=== PATIENT | female | born 1995 | race Caucasian/White ===

== ENCOUNTER 2022-09-05 09:40 | Inpatient (IN) | payer BC, OTHER ==
[~2022-09-05] VITALS: Ht 165.1 cm; Wt 43.1 kg
[2022-09-05] MEDS ORDERED: SPIR50TA5 PO (10:06)
--- NOTE | 2022-09-05 10:08 | NUR ---
to ER 16 UA - sent to lab
--- NOTE | 2022-09-05 10:10 | NUR ---
urine sample obtained sent to lab
--- NOTE | 2022-09-05 10:18 | NUR ---
IV STARTED. R FA 20G
[2022-09-05] MEDS ORDERED: ONDANSETRON HCL/PF 4 MG/2 ML VIAL ONE (10:26)
[2022-09-05] MEDS ORDERED: MORPHINE SULFATE INJ 4 MG/ML DISP.SYRIN ONE (10:27)
[2022-09-05] MEDS ORDERED: IV NS 0.9% 500 ML BAG IV ONE (10:30)
[2022-09-05] MEDS ORDERED: MORPHINE SULFATE INJ 2 MG/ML DISP.SYRIN IV ONE (10:30)
[2022-09-05] MEDS ORDERED: ONDANSETRON HCL/PF 4 MG/2 ML VIAL IVP ONE (10:30)
[2022-09-05 10:48] LABS: BASOPHILS % (AUTO) 0.2 % (0.0-2.0); EOSINOPHILS % (AUTO) 0.3 % (0.0-6.0); HEMATOCRIT 44 % (33-45); HEMOGLOBIN 14.7 g/dL (11.5-14.8); LYMPHOCYTES # (AUTO) 0.9 K/uL (0.8-4.8); LYMPHOCYTES % (AUTO) 11.3 % (20.0-44.0); MEAN CORPUSCULAR HGB CONC 33 g/dl (31.0-36.0); MEAN CORPUSCULAR VOLUME 93 fL (82-100); MONOCYTES # (AUTO) 0.5 K/uL (0.1-1.30); MONOCYTES % (AUTO) 6.1 % (2.0-12.0); NEUTROPHILS # (AUTO) 6.2 K/uL (1.8-8.9); NEUTROPHILS % (AUTO) 82.1 % (43.0-81.0); PLATELET COUNT (AUTO) 310 K/uL (150-450); WHITE BLOOD COUNT (AUTO) 7.6 K/uL (4.3-11.0)
[2022-09-05 11:20] LABS: CALCIUM, SERUM 9.6 mg/dL (8.5-10.1); CREATININE 0.9 mg/dL (0.6-1.3); POTASSIUM 3.8 mmol/L (3.5-5.1)
[2022-09-05 11:23] LABS: BILIRUBIN,URINE NEGATIVE (NEGATIVE); COLOR,URINE YELLOW (YELLOW); LEUKOCYTE ESTERASE ,URINE NEGATIVE (NEGATIVE); NITRITE, URINE NEGATIVE (NEGATIVE); PROTEIN,URINE NEGATIVE (NEGATIVE); UGLUCOSE NEGATIVE (NEGATIVE); UROBILINOGEN,URINE 0.2 EU/dL (0.2)
[2022-09-05 11:26] LABS: ALBUMIN 4.5 g/dL (3.4-5.0); BILIRUBIN,DIRECT 0.2 mg/dL (0.0-0.2); BILIRUBIN,TOTAL 0.5 mg/dL (0.2-1.0); TOTAL PROTEIN, SERUM 7.7 g/dL (6.4-8.2)
--- NOTE | 2022-09-05 11:40 | NUR ---
RETURNED FROM RADIOLOGY
[2022-09-05 11:55] LABS: BACTERIA,URINE None seen /HPF (None Seen); RBC,URINE 0-2 /HPF (0-2); SQUAMOUS EPITHELIAL CELL,UR Rare /HPF (None Seen); WBC,URINE 0-2 /HPF (0-3)
--- NOTE | 2022-09-05 11:56 | NUR ---
DR LEIVA AT BEDSIDE
--- NOTE | 2022-09-05 12:09 | NUR ---
covid swab taken
--- NOTE | 2022-09-05 12:10 | NUR ---
PAGED DR. MONK FOR PEER TO PEER CONSULT
--- NOTE | 2022-09-05 12:10 | NUR ---
PAGED DR. MARINA REGARDING SURGERY FOR PT
--- NOTE | 2022-09-05 12:18 | NUR ---
NG TUBE PLACED AND SECURED ,
--- NOTE | 2022-09-05 12:18 | NUR ---
CALLED XRAY FOR NG TUBE PLACEMENT CONFIRMATION
--- NOTE | 2022-09-05 12:43 | NUR ---
WAQAR CALLED [facility]O FOR A [facility] BED
--- NOTE | 2022-09-05 13:39 | NUR ---
report given to Janina WELLS.
--- NOTE | 2022-09-05 14:05 | NUR ---
CHAMBER WALKER NOTES: RECEIVED PT VIA GURNEY FROM ER, PT IS AWAKE, A/O X4, ABLE TO MAKE NEEDS KNOW. ON RA, BREATHING EVEN AND UNLABORED, NO S/S OF SOB. PT ABLE TO TRANSFER SELF TO BED. IV ACCESS AT R AC #20, PATENT AND INTACT. SKIN IS INTACT. NG TUBE FOR SUCTION NOTED, SETTING AT LOW TO MEDIUM. PT ORIENTED TO STAFF AND UNIT. CALL LIGHT, TABLE WITHIN REACH, SAFETY MEASURES IN PLACE, WILL CONT WITH PLAN OF CARE DURING SHIFT.
[2022-09-05] MEDS ORDERED: HYDROCODONE/APAP 5/325MG TABLET PO PRN (15:00)
[2022-09-05] MEDS ORDERED: IV D5/0.45 NACL 1,000 ML IV PRN (15:00)
[2022-09-05] MEDS ORDERED: Z GUARD REMEDY 4 OZ OINT TP PRN (15:00)
[2022-09-05] MEDS ORDERED: ONDANSETRON HCL/PF 4 MG/2 ML VIAL IVP PRN (15:00)
[2022-09-05] MEDS ORDERED: ZOLPIDEM TARTRATE 5 MG TABLET PO PRN (15:00)
[2022-09-05] MEDS ORDERED: MAGNESIUM HYDROXIDE 30 ML UDC PO PRN (15:00)
[2022-09-05] MEDS ORDERED: MAG HYDROX/AL HYDROX/SIMETH 30 ML UDC PO PRN (15:00)
[2022-09-05] MEDS ORDERED: MORPHINE SULFATE INJ 2 MG/ML DISP.SYRIN IV PRN (15:00)
[2022-09-05] MEDS ORDERED: ACETAMINOPHEN 325 MG TABLET PO PRN (15:00)
--- NOTE | 2022-09-05 15:45 | NUR ---
RN NOTES; PT C/O OF ABDOMINAL PAIN 03/02, WILL MEDICATE ORDERED
[2022-09-05 16:07] VITALS: BP 128/75
--- NOTE | 2022-09-05 16:21 | NUR ---
RN NOTES; ENDORSED TO [facility] FOR KAYCE
--- NOTE | 2022-09-05 19:30 | NUR ---
MS RN CLOSING NOTES PATIENT ON BED AWAKE AND A/O X4. ON ROOM AIR TOLERATING WELL. NO SOB NOTED. NOT IN DISTRESS. WITH NO COMPLAINTS OF PAIN AT THIS TIME. WITH IV ACCESS AT THE RIGHT AC G20 WITH D5 1/2NS AT 125ML/HR INFUSING WELL. WITH NG-TUBE IN PLACED ATTACHED TO WALL SUCTION ON LOW INTERMITTENT SUCTION. SAFETY MEASURES IN PLACED. CALL LIGHT WITHIN REACH. BED ON LOWEST LOCKED POSITION, SIDE RAILS UP X2. WILL ENDORSE TO NEXT SHIFT FOR KAYCE.
[2022-09-05 20:00] VITALS: BP 121/70
[2022-09-05 20:07] VITALS: BP 128/75
[2022-09-06 06:11] LABS: BASOPHILS % (AUTO) 0.5 % (0.0-2.0); EOSINOPHILS % (AUTO) 2.1 % (0.0-6.0); HEMATOCRIT 37 % (33-45); HEMOGLOBIN 12.5 g/dL (11.5-14.8); LYMPHOCYTES # (AUTO) 1.7 K/uL (0.8-4.8); LYMPHOCYTES % (AUTO) 23.2 % (20.0-44.0); MEAN CORPUSCULAR HGB CONC 34 g/dl (31.0-36.0); MEAN CORPUSCULAR VOLUME 93 fL (82-100); NEUTROPHILS # (AUTO) 4.4 K/uL (1.8-8.9); NEUTROPHILS % (AUTO) 60.2 % (43.0-81.0); PLATELET COUNT (AUTO) 219 K/uL (150-450); RED BLOOD CELL COUNT(AUTO) 3.99 MIL/uL (4.0-5.2); WHITE BLOOD COUNT (AUTO) 7.3 K/uL (4.3-11.0)
[2022-09-06 07:47] LABS: CALCIUM, SERUM 8.4 mg/dL (8.5-10.1); CREATININE 0.8 mg/dL (0.6-1.3); MAGNESIUM 1.7 mg/dL (1.8-2.4); PHOSPHORUS 4.1 mg/dL (2.5-4.9); POTASSIUM 3.8 mmol/L (3.5-5.1)
[2022-09-06 08:00] VITALS: BP 105/63
[2022-09-06] MEDS ORDERED: DIATR MEGLU/DIATRIZOATE SODIUM 120 ML BOTTLE (GASTROGRAPHIN) ONE (09:13)
[2022-09-06] MEDS: PANTOPRAZOLE 40 MG VIAL IV SCH ×2 (09:17→09:26)
[2022-09-06] MEDS: Magnesium 1GM/D5W 100ML PREMIX 100 ML IV SCH ×2 (12:54→13:01)
[2022-09-06 16:00] VITALS: BP 116/65
--- NOTE | 2022-09-06 19:57 | NUR ---
RN OPENING NOTE PATIENT AWAKE IN BED W/ FAMILY MEMBER AT BEDSIDE. A/OX4. NO S/S OF DISTRESS, BREATHING W/O DIFFICULTY ON ROOM AIR. RAC #20 INTACT AND PATENT W/ D5-1/2NS @125ML/HR. SAFETY MEASURES IN PLACE: BED LOCKED AND AT LOWEST POSITION, RAILS UP X2, CALL WAN WITHIN REACH. WILL CONTINUE TO MONITOR PATIENT.
--- NOTE | 2022-09-06 21:00 | NUR ---
RN D/C NOTE PATIENT WAS GIVEN PATIENT TEACHING. ALL LABS AND DIAGNOSTICS ALONG WITH D/C PAPERWORK GIVEN TO PATIENT PER AMANDA'S INSTRUCTIONS. PATIENT D/C'D STABLE. PATIENT SIGNED D/C PAPERWORK IN ACKNOWLEDGEMENT OF INSTRUCTIONS. NGT REMOVED FROM PATIENT SUCCESSFULLY. IV ACCESS REMOVED, PRESSURE DRESSING APPLIED. NO BLEEDING NOTED. ID BAND REMOVED AND DISPOSED OF IN PROPER HIPAA PROTOCOL. PATIENT LEFT W/ HER MOTHER - PATIENT FULLY AMBULATORY. PATIENT DECLINED ESCORT TO PARKING LOT OR ANY AMBULATORY AID/ASSISTANCE.
== END 2022-09-06 21:00 | disposition home or self-care (01) | DRG 390 ==
LOC: ER 09:47 → MED 13:45
PROVIDERS: ADMIT Student in an Organized Health Care Education/Training Program; ATTEND Nurse Practitioner Acute Care
DX: K56.609 Unspecified intestinal obstruction, unspecified as to partial versus complete obstruction (principal); M32.9 Systemic lupus erythematosus, unspecified; Z20.822 Contact with and (suspected) exposure to COVID-19; G89.29 Other chronic pain; L70.9 Acne, unspecified; Z79.899 Other long term (current) drug therapy; N83.291 Other ovarian cyst, right side; K59.00 Constipation, unspecified
CPT/HCPCS: 36415; 74018; 74250-TC; 76856-TC; 80048-TC; 80076-TC; 81001; 83690-TC; 83735-TC; 84100-TC; 84703-TC; 85025-TC; 87081-TC; C9113; C9803; G0378; J2270; J2405; J3475; J3490; J7040; Q9963